=== PATIENT | male | born 1975 | race Caucasian/White ===

== ENCOUNTER 2025-07-04 14:45 | Outpatient (CLI) | payer BC, SELFPAY ==
--- OUTSIDE RECORDS SUMMARY | 2025-05-10 13:30 | XMS_ITS | Encounter Summary ---
[facility] Address [address] [place] [address] Care Team Providers Care Automatic Chief Name Role Phone LeenaYamilka acosta Amy CARD Primary Care Provider [phone]- [phone] Reason for Visit * Reason Comments Inflammation of Left Elbow X2 weeks Encounter Details Date Type Department Care Team (Latest Contact Info) Description 05/10/2025 2:30 PM EDT Office Visit [facility] [address] [facility] [place] [address] Vannesa Goel, PABrando [address] [place] [address] Left lateral epicondylitis (Primary Dx) Social History Tobacco Use Types Packs/Day Years Used Date Smoking Tobacco: Never Smokeless Tobacco: Never Alcohol Use Standard Drinks/Week Comments Yes 0 (1 standard drink = 0.6 oz pur e alcohol) beer on occasion PHQ-2 Answer Date Recorded Retired PHQ-9: Brief Depression Severity Measure Score 0 10/03/2022 PHQ-2 Answer Date Recorded Patient Health Questionnaire-2 Score 0 10/10/2024 Sex and Gender Information Value Date Recorded Sex Assigned at Not on file Legal Sex Male 12:18 PM EDT Gender Identity Not on file Sexual Orientation Not on file Occupation Industry Job Start Date Job End Date Not on file Not on file Not on file Not on file documented as of this encounter Last Filed Vital Signs Vital Sign Reading Time Taken Comments Blood Pressure 128/90 05/10/2025 2:29 PM EDT Pulse 68 05/10/2025 2:29 PM EDT Temperature 36.8 C (98.2 F) 05/10/2025 2:29 PM EDT Respiratory Rate 16 05/10/2025 2:29 PM EDT Oxygen Saturation - - Inhaled Oxygen Concentration - - Weight 108 kg (237 lb) 05/10/2025 2:29 PM EDT Height - - Body Mass Index 32.14 03/15/2025 3:39 PM EDT documented in this encounter Progress Notes * Vannesa Goel PA-C - 05/10/2025 3:10 PM EDTAssociated Problem(s): Left lateral epicondylitis History and physical consistent with left lateral epicondylitis Patient has tried conservative measures at home without relief Steroid injection given in office Advised patient to avoid activity that worsens symptoms Follow up with [facility] if symptoms do not improve * Vannesa Goel PA-C - 05/10/2025 2:30 PM EDT Images from the original note were not included. Office Note Name: Naif Colmenares : 1975 Chief Complaint Inflammation of Left Elbow (X2 weeks ) Subjective History of Present Illness: Naif Colmenares is a 49 y.o. male who presents today with complaints of left elbow pain. Symptoms began approximately 2 weeks go. 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 Is also active in [employer]. Has a history of epicondylitis and feels that is what this is. Most recent episode, patient received a joint injection at [facility] which did provide him relief. Has been doing exercises at home given by PT, tried using a brace, is taking ibuprofen as needed, and applying ice to the affected area. Has not been able to get any relief from symptoms. Cannot tolerate oral steroids. No other complaints or concerns. Past Medical History: Past Medical History: Diagnosis Date ADHD, predominantly inattentive type Decreased libido Elevated blood pressure Exposure to STD Reported 04/14/2011 History of herpes zoster Reported October 2012 History of urinary frequency 3 times during the night (Reported: 04/14/2011) Insomnia Low back pain Pain in joint of right shoulder Sacroiliitis Wart Immunizations: Immunization History Administered Date(s) Administered Flu Vaccine Intradermal Quad 18-64YR 06/08/2018 Hepatitis A 06/08/2018 Influenza Seasonal Injectable 05/13/2019 flucelvax quad pfs =>4 YRS 06/12/2019 Medications: Current Outpatient Medications: amphetamine-dextroamphetamine (Adderall) 20 MG tablet, Take 1 tablet by mouth 2 (Two) Times a Day.,Disp: 60 tablet, Rfl: 0 inFLIXimab (REMICADE) 100 MG injection, Infuse into a venous catheter., Disp: , Rfl: pantoprazole (PROTONIX) 40 MG EC tablet, Take 1 tablet by mouth Every Morning., Disp: , Rfl: zolpidem (AMBIEN) 5 MG tablet, Take 2 tablets by mouth At Night As Needed for Sleep., Disp: 60 tablet, Rfl: 2 No current facility-administered medications for this visit. Objective Vital Signs BP 128/90 Pulse 68 Temp 98.2 ??F (36.8 ??C) Resp 16 Wt 108 kg (237 lb) BMI 32.14 kg/m?? Estimated body mass index is 32.14 kg/m?? as calculated from the following: Height as of 03/15/25: 182.9 cm (72 ). Weight as of this encounter: 108 kg (237 lb). Physical Exam Vitals and nursing note reviewed. Constitutional: Appearance: Normal appearance. HENT: Head: Normocephalic and atraumatic. Cardiovascular: Rate and Rhythm: Normal rate and regular rhythm. Heart sounds: No murmur heard. No friction rub. No gallop. Pulmonary: Effort: Pulmonary effort is normal. Breath sounds: Normal breath sounds. No wheezing, rhonchi or rales. Musculoskeletal: Right elbow: Normal. No tenderness. Left elbow: Tenderness present in lateral epicondyle. Skin: General: Skin is warm and dry. Neurological: General: No focal deficit present. Mental Status: He is alert and oriented to person, place, and time. Psychiatric: Mood and Affect: Mood normal. Behavior: Behavior normal. Assessment and Plan Diagnoses and all orders for this visit: 1. Left lateral epicondylitis (Primary) Assessment & Plan: History and physical consistent with left lateral epicondylitis Patient has tried conservative measures at home without relief Steroid injection given in office Advised patient to avoid activity that worsens symptoms Follow up with [facility] if symptoms do not improve Orders: - triamcinolone acetonide (KENALOG-40) injection 40 mg Follow Up No follow-ups on file. ISABEL Chawla [place] [facility] [address] [place] [address] documented in this encounter Plan of Treatment Upcoming Encounters Date Type Department Care Team (Late st Contact Info) Description 09/15/2025 4:30 PM EST Office Visit [facility] [address] [place] [address] Yamilka Stern DO [address] [place] [place] [address] documented as of this encounter Visit Diagnoses Diagnosis Left lateral epicondylitis- Primary documented in this encounter Administered Medications Inactive Administered Medications - up to 3 most recent administrations Medication Order MAR Action Action Date Dose Rate Site triamcinolone acetonide (KENALOG-40) injection 40 mg 40 mg, Intramuscular, Once, On Thu05/10/25 at 1447, For 1 doseIndications:Left lateral epicondylitis Given 05/10/2025 2:48 PM EDT 40 mg Left Ventrogluteal documented in this encounter Care Teams Automatic Chief Relationship Specialty Start Date End Date Yamilka Stern DO [address] [place] [address] PCP - General Family Medicine 01/10/19 documented as of this encounter
--- OUTSIDE RECORDS SUMMARY | 2025-06-29 12:30 | XMS_ITS | Encounter Summary ---
[facility] Address [address] [place] [address] Care Team Providers Care Interpreter Translator Name Role Phone Yamilka Stern DO Primary Care Provider [phone]- [phone] Reason for Visit * Reason Comments Anxiety increasing Encounter Details Date Type Department Care Team (Late st Contact Info) Description 06/29/2025 12:30 PM EST Office Visit [facility] [address] [facility] [place] [address] Yamilka Stern DO [address] [facility] [place] [address] Anxiety (Primary Dx); Stress; Other insomnia; Right elbow pain; Trapezius muscle spasm Social History Tobacco Use Types Packs/Day Years [...] Sign Reading Time Taken Comments Blood Pressure 116/82 06/29/2025 12:17 PM EST Pulse 97 06/29/2025 12:17 PM EST Temperature 36.3 C (97.3 F) 06/29/2025 12:17 PM EST Respiratory Rate 16 06/29/2025 12:17 PM EST Oxygen Saturation 95% 06/29/2025 12:17 PM EST Inhaled Oxygen Concentration - - Weight 107 kg (236 lb 3.2 oz) 06/29/2025 12:17 P M EST Height 182.9 cm (6') 06/29/2025 12:17 PM EST Body Mass Index 32.03 06/29/2025 12:17 PM EST documented in this encounter Patient Instructions * Attachments The following attachments cannot be sent through Care Everywhere. * Generalized Anxiety Disorder Adult ([place]) documented in this encounter Progress Notes * Yamilka Stern DO - 06/29/2025 12:30 PM EST Images from the original note were not included. Chief Complaint Anxiety (increasing) Subjective Naif Baker Dedra presents to [facility] History of Present Illness The patient presents for evaluation of right elbow pain and anxiety. He reports experiencing right elbow pain for approximately one week, which he attributes to either an incorrect sleeping position or a muscle strain. The pain is described as a burning sensation accompanied by stiffness and radiates down the arm. He suspects a possible pinched nerve in his shoulder. He has a history of ulnar nerve surgery and a bicep tear, and he believes the current pain may be a re-aggravation of these previous injuries. He has found some relief with Flexeril, taking two doses, and using a massage gun. Hot showers also seem to alleviate the pain. He is unable to take ibuprofen due to adverse reactions related to UC. He has previously taken prednisone and Medrol Dosepak without complication. He is currently undergoing a job transition, which has been a source of significant stress and anxiety over the past two months. He reports feelings of irritability and difficulty controlling stress.He also experiences episodes of shortness of breath associated with increased anxiety and has abstained from alcohol consumption. He has previously taken buspirone, but discontinued it due to side effects. He has not tried hydroxyzine before. He has been using Ambien for slee,p but finds it less effective than the extended-release version he used to take. Alcohol: He has abstained from alcohol consumption. Sleep: He has been using Ambien for sleep, but finds it less effective than the extended-release version he used to take. The following portions of the patient's history were reviewed and updated as appropriate: allergies, current medications, past family history, past medical history, past social history, past surgicalhistory, and problem list. Objective Physical Exam Vitals and nursing note reviewed. Cardiovascular: Rate and Rhythm: Normal rate and regular rhythm. Heart sounds: Normal heart sounds. Pulmonary: Effort: Pulmonary effort is normal. Breath sounds: Normal breath sounds. Musculoskeletal: Right elbow: Normal range of motion. Tenderness present in medial epicondyle. Arms: Comments: Increased muscle tension right trapezius Neurological: Mental Status: He is alert. Psychiatric: Mood and Affect: Mood normal. Physical Exam Result Review : Results Assessment and Plan Diagnoses and all orders for this visit: 1. Anxiety (Primary) - hydrOXYzine (ATARAX) 25 MG tablet; Take 1 tablet by mouth 3 (Three) Times a Day As Needed for Anxiety. Dispense: 30 tablet; Refill: 2 2. Stress 3. Other insomnia - zolpidem CR (Ambien CR) 12.5 MG CR tablet; Take 1 tablet by mouth At Night As Needed for Sleep. Dispense: 30 tablet; Refill: 5 4. Right elbow pain - methylPREDNISolone (MEDROL) 4 MG dose pack; Take as directed on package instructions. Dispense: 21 tablet; Refill: 0 - cyclobenzaprine (FLEXERIL) 10 MG tablet; Take 1 tablet by mouth 3 (Three) Times a Day As Needed for Muscle Spasms. Dispense: 30 tablet; Refill: 1 5. Trapezius muscle spasm - methylPREDNISolone (MEDROL) 4 MG dose pack; Take as directed on package instructions. Dispense: 21 tablet; Refill: 0 - cyclobenzaprine (FLEXERIL) 10 MG tablet; Take 1 tablet by mouth 3 (Three) Times a Day As Needed for Muscle Spasms. Dispense: 30 tablet; Refill: 1 Assessment & Plan 1. Right elbow pain: - The patient reports burning, stiffness, and pain radiating down the arm, which improves with movement and heat but worsens upon waking. - A prescription for Medrol Dosepak will be provided to manage the inflammation. - A prescription for Flexeril (cyclobenzaprine) will be provided for muscle relaxation. The patientis advised to apply cold compresses to the affected area and to rest the elbow as much as possible. -If this persist, consider cervical spine evaluation versus right shoulder evaluation. 2. Anxiety: - The anxiety appears to be situational, likely triggered by recent job-related stressors. - The patient reports irritability, difficulty controlling emotions, and episodes of feeling on edge and unable to breathe. - A prescription for hydroxyzine will be provided, to be taken as needed. If drowsiness occurs, thedose can be halved. If the medication does not alleviate the anxiety, the dosage can be increased. - A prescription for Ambien CR will be provided to aid with sleep, changing from immediate release Ambien. FRANCIA query complete. Treatment plan to include limited course of prescribed controlled substance. Risks including addiction, benefits, and alternatives presented to patient. Follow Up Return if symptoms worsen or fail to improve. Patient or patient medical customer service representative verbalized consent for the use of Ambient Listening during the visit with Yamilka Stern DO for chart documentation. 06/29/2025 13:06 EST Patient was given instructions and counseling regarding his condition or for health maintenance advice. Please see specific information pulled into the AVS if appropriate. documented in this encounter Plan of Treatment Upcoming Encounters Date Type Department Care Team (Late st Contact Info) Description 09/15/2025 4:30 PM EST Office Visit [facility] [address] [place] [id number] Yamilka Stern DO [address] [place] [address] documented as of this encounter Visit Diagnoses Diagnosis Anxiety- Primary Anxiety state, unspecified Stress Other psychological or physical stress, not elsewhere classified Other insomnia Right elbow pain Pain in joint, upper arm Trapezius muscle spasm documented in this encounter Care Teams Interpreter Translator Relationship Specialty Start Date End Date Yamilka Stern DO [address] [place] [address] PCP - General Family Medicine 01/10/19 documented as of this encounter
--- OUTSIDE RECORDS SUMMARY | 2025-07-04 14:47 | XMS_ITS | Encounter Summary ---
[facility] [address] [place] [address] Care Team Providers Care Early Childhood Assistant Name Role Phone Yamilka Stern DO Primary Care Provider +1- [phone] Reason for Visit * Reason Onset Date Comments Med Refill 06/16/2025 Encounter Details Date Type Department Care Team (Late st Contact Info) Description 06/16/2025 Refill [facility] [address] [place] [address] Yamilka Stern DO [address] [place] [address] Other insomnia Social History Tobacco Use Types Packs/Day Years [...] on file documented as of this encounter Miscellaneous Notes * Telephone Encounter - Holly Figueredo RegSched Rep - 06/16/2025 8:06 AM EST Caller: Naif Colmenares Relationship: Self Best call back number: [phone] Requested Prescriptions: Requested Prescriptions Pending Prescriptions Disp Refills zolpidem (AMBIEN) 5 MG tablet 60 tablet 2 Sig: Take 2 tablets by mouth At Night As Needed for Sleep. Pharmacy where request should be sent: [id number] - [place], [place] - [address] [facility] AT [address] [phone] [facility] [phone] FX Last office visit with prescribing clinician: 03/15/2025 Last telemedicine visit with prescribing clinician: Visit date not found Next office visit with prescribing clinician: 09/15/2025 Additional details provided by patient: Does the patient have less than a 3 day supply: [x] Yes [] No Would you like a call back once the refill request has been completed: [] Yes [] No If the office needs to give you a call back, can they leave a voicemail: [] Yes [] No Mary Murphy Rep 06/16/25 08:07 EST documented in this encounter Plan of Treatment Upcoming Encounters Date Type Department Care Team (Late st Contact Info) Description 09/15/2025 4:30 PM EST Office Visit [facility] [address] [place] [phone] Yamilka Stern DO [address] [place] [address] documented as of this encounter Visit Diagnoses Diagnosis Other insomnia documented in this encounter Care Teams Early Childhood Assistant Relationship Specialty Start Date End Date Yamilka Stern DO [address] [place] [address] PCP - General Family Medicine 01/10/19 documented as of this encounter
--- OUTSIDE RECORDS SUMMARY | 2025-07-04 14:47 | XMS_ITS | Encounter Summary ---
[facility] [address] [place] [address] Care Team Providers Care Medical Biller/Coder Name Role Phone Yamilka Stern DO Primary Care Provider +1- [phone] Encounter Details Date Type Department Care Team (Latest Contact Info) Description 05/10/2025 Travel Social History Tobacco Use Types Packs/Day Years [...] on file documented as of this encounter Plan of Treatment Upcoming Encounters Date Type Department Care Team (Late st Contact Info) Description 09/15/2025 4:30 PM EST Office Visit [facility] [address] [place] [address] Yamilka Stern DO [address] [place] [address] documented as of this encounter Visit Diagnoses Not on filedocumented in this encounter Care Teams Medical Biller/Coder Relationship Specialty Start Date End Date Yamilka Stern DO [address] [place] [address] PCP - General Family Medicine 01/10/19 documented as of this encounter
--- OUTSIDE RECORDS SUMMARY | 2025-07-04 14:47 | XMS_ITS | Encounter Summary ---
[facility] [address] [place] [address] Care Team Providers Care Sole Trimmer Name Role Phone Yamilka Stern DO Primary Care Provider +1- [phone] Encounter Details Date Type Department Care Team (Latest Contact Info) Description 06/29/2025 Travel Social History Tobacco Use Types Packs/Day [...] Description 09/15/2025 4:30 PM EST Office Visit [facility] [address] [place] [address] Yamilka Stern DO [address] [place] [address] documented as of this encounter Visit Diagnoses Not on filedocumented in this encounter Care Teams Sole Trimmer Relationship Specialty Start Date End Date Yamilka Stern DO [address] [place] [address] PCP - General Family Medicine 01/10/19 documented as of this encounter
--- OUTSIDE RECORDS SUMMARY | 2025-07-04 14:47 | XMS_ITS | Clinical Summary ---
Author Organization [facility] Address [address] [id number] Care Team Providers Care Paratransit Operator Name Role Phone Unavailable Primary Care Provider Unavailabl e Social History Tobacco Use Types Packs/Day Years Used Date Smoking Tobacco: Never Assessed Sex and Gender Information Value Date Recorded Sex Assigned at Not on file Legal Sex Male 7:51 PM EDT Gender Identity Not on file Sexual Orientation Not on file Plan of Treatment Health Maintenance Due Date Last Done Comments [facility]-Depression Screening 1975 [facility]-Infant/Child/Adol SDOH Screenings 1975 [facility]- SDOH Screenings 1994 [facility]-Adult SDOH Screenings 1994 [facility]-DTaP,Tdap,and Td Vaccine s (1 - Tdap) 12/09/1995 [facility]-Hepatitis B Vaccines (1 of 3 - 19+ 3-dose series) 12/09/1995 CT Colonography 2021 Colonoscopy 2021 FIT-DNA 2021 FIT 2021 FOBT 2021 Sigmoidoscopy 2021 [facility]-Colorectal Cancer Screening 2021 [id number] Vaccine (1 - 20 25-26 season) 2025 [facility]-Influenza Vaccine (#1) 2025 [facility]-Zoster Vaccines (1 of 2) 2026 HPV Vaccines (No Doses Required) Completed [facility]-HIB Vaccines Aged Out No longer e ligible based on patient's age to complete this topic [facility]-Hepatitis A Vaccines Aged Out No longer eligible based on patient's age to complete this topic [facility]-IPV Vaccines Aged Out No longer e ligible based on patient's age to complete this topic [facility]-Pneumococcal Vaccine: Pediatrics (0 to 5 Years) and At-Risk Patients (6 to 49 Years) Aged Out No long er eligible based on patient's age to complete this topic [facility]-Rotavirus Vaccines Aged Out No lo nger eligible based on patient's age to complete this topic
--- OUTSIDE RECORDS SUMMARY | 2025-07-04 14:47 | XMS_ITS | Encounter Summary ---
[facility] Address [address] [place] [address] Care Team Providers Care Post Acute Care Nurse Practitioner Name Role Phone Yamilka Stern DO Primary Care Provider +1- [phone] Reason for Visit * Reason Onset Date Comments Med Refill 05/16/2025 Encounter Details Date Type Department Care Team (Late st Contact Info) Description 05/16/2025 Refill [facility] [address] [place] [address] Yamilka Stern DO [address] [place] [address] ADHD, predominantly inattentive type Social History Tobacco Use Types Packs/Day Years [...] encounter Miscellaneous Notes * Telephone Encounter - Lety Thibodeaux RegSched Rep - 05/16/2025 3:11 PM EST Caller: Naif Colmenares Relationship: Self Best call back number: [phone] Requested Prescriptions: Requested Prescriptions Pending Prescriptions Disp Refills amphetamine-dextroamphetamine (Adderall) 20 MG tablet 60 tablet 0 Sig: Take 1 tablet by mouth 2 (Two) Times a Day. Pharmacy where request should be sent: [id number] - [place], [place] - [address] [facility] AT [address] [phone] [facility] [phone] Last office visit with prescribing clinician: 03/15/2025 Last telemedicine visit with prescribing clinician: Visit date not found Next office visit with prescribing clinician: 09/15/2025 Does the patient have less than a 3 day supply: [x] Yes [] No Would you like a call back once the refill request has been completed: [] Yes [] No If the office needs to give you a call back, can they leave a voicemail: [] Yes [] No Mary Srinivasan Rep 05/16/25 15:11 EST documented in this encounter Plan of Treatment Upcoming Encounters Date Type Department Care Team (Late st Contact Info) Description 09/15/2025 4:30 PM EST Office Visit [facility] [address] [place] [phone] Yamilka Stern DO [address] [place] [address] documented as of this encounter Visit Diagnoses Diagnosis ADHD, predominantly inattentive type Attention deficit disorder without mention of hyperactivity documented in this encounter Care Teams Post Acute Care Nurse Practitioner Relationship Specialty Start Date End Date Yamilka Stern DO [address] [place] [address] PCP - General Family Medicine 01/10/19 documented as of this encounter
--- OUTSIDE RECORDS SUMMARY | 2025-07-04 14:48 | XMS_ITS | Clinical Summary ---
Author Organization [facility] , [facility] Address [address] [place] [address] Phone Care Team Providers Care House Servant Name Role Phone Carlo CLAROS, Terence Frederick Unavailable [phone] Yamilka Stern DO Primary Care Provider [phone] Reason for Referral 12/27/2020 Encounter for WC FOLLOW UP/EST Date Recorded Target Due Date Referral Type Referring Prov ider Reason For Referral 12/27/2020 Terence Matos MD see pcp for bp Last Documented On 1 9:03AM ; [facility] Reason for Visit and Chief Complaint The Chief Complaint is: right biceps tendon repair 03/21/20 Problems Includes: Problems addressed during this encounter and other active Problems All Visits Onset Date Date of Diagnosis Resolved Date Provider Condition Status Bone Pain in Right Upper Arm 03/06/2020 03/06/2020 Terence Matos MD Active Last Documented On 5 1:40AM ; [facility] Right Elbow Bone Pain 02/08/2020 02/08/2020 Jewell Handley MD Active Last Documented On 5 1:40AM ; [facility] Plan of Treatment Patient was seen by myself Akshat Broderick PA-C. Patient will follow up as needed for now will return to work on Thursday with no restrictions and see how this goes with him. In the future if his cubital tunnel is still symptomatic he may need to have further surgery. First bicep tendon repair is at I at this point in time - Last Documented On 02/07/2021 4:10PM ; [facility], [facility] Assessments Includes: Assessments from this encounter Findings Right elbow bicep tendon repair 03/21/20 and cubital tunnel syndrome - Last Documented On 02/07/2021 4:10PM ; [facility], [facility] Medical Equipment - Implanted Devices Includes: Current Devices No Medical Equipment Recorded Medications Includes: Medications discussed during this encounter and other current Medications Current Medications (continue as prescribed) Amphet-Dextroamphet 3-Bead E R 25 MG Oral Capsule Extended Release 24 Hour 01/12/2020 Provider: Yamilka Stern DO Diagnosis: Last Documented On 0 11:09AM By Jenelle Mcmillan ; [facility], [facility] Zolpidem Tartrate ER 12.5 MG Oral Tablet Extended Release 11/17/2019 Provider: Yamilka Stern DO Diagnosis: Last Documented On 0 11:09AM By Jenelle Mcmillan ; [facility], [facility] Past Medications on file Medrol 4 MG Oral Tablet Ther apy Pack 06/28/2020 - 07/28/2020 Provider: Terence Matos MD Diagnosis: take as directed Last Documented On 0 10:36AM By Devi Estrada ; [facility], [facility] Percocet 5-325 MG OR TABS 03/18/2020 - 04/02/2020 Prov ider: Terence Matos MD Diagnosis: prn pain Last Documented On 0 4:29PM By Sissy Lynch ; [facility], [facility] Medications Administered Includes: Administered Medications from this encounter No Administered Medications Recorded Vital Signs Includes: Vital Signs from this encounter Vital Name 12/27/2020 09:03A Blood Pressure Sitting (mmHg) 130/93 Pulse Rate-Sitting (bpm) 86 Height (in) 72 Weight (lb) 215 Body Mass Index (kg/m2) 29.2 Body Surface Area (m2) 2.2 Note: efrain Last Documented: On 12/27/2020 9:06AM ; [facility], [facility] Results Includes: Results discussed during this encounter No Results Recorded For Specified Dates History of Present Illness Includes: History of Present Illness from this encounter OBEY Colmenares (Wes) is a 45 year old male. - Allergy list reviewed - Problem list reviewed - Medication reconciliation performed - Medication list reviewed Patient is here today for follow-up of his right biceps tendon repair and cubital tunnel syndrome his biceps tendon repair was 03/21/2020 typically had developed postoperatively some cubital tunnel. He says he still has numbness and tingling in the last 2 fingers he feels his bicep is doing well he would like to try to get back to work at this point in time Social History Description Last Updated Non-smoker 12/27/2020 Last Documented On 1 4:10PM ; [facility] No recent change in diet 02/08/2020 Last Documented On 1 9:03AM ; [facility] Not a current smoker 02/08/2020 Last Documented On 1 9:03AM ; [facility] Not using alcohol 02/08/2020 Last Documented On 1 9:03AM ; [facility] Not using drugs 02/08/2020 Last Documented On 1 9:03AM ; [facility] Sex - Male 09/01/2022 Last Documented On 3 3:45PM ; [facility] Smoking Status Unknown Procedures and Surgical History Includes: Procedures from this encounter Procedures Code Diagnosis Performing Provider Service L ocation Service Date use of tobacco assessment performed 1000F Last Documented On 1 9:03AM ; [facility] referral to physician see pcp for bp Last Documented On 1 9:03AM ; [facility] Medical History Includes: Medical History addressed during this encounter Description Last Updated Past medical and surgical history non-co ntributory 02/08/2020 Last Documented On 1 9:03AM ; [facility] Family History Includes: Family History addressed during this encounter Description Last Updated No significant family history 02/08/2020 Last Documented On 1 9:03AM ; [facility] Review of Systems Includes: Review of Systems from this encounter Systemic: Not feeling tired, no recent weight loss, and no recent weight gain. No edema. Head: No headache and no sinus pain. Eyes: No vision problems and no glaucomatous visual field defect. Otolaryngeal: No hearing loss and no tinnitus. No nasal symptoms. Cardiovascular: No chest pain or discomfort and no palpitations. Pulmonary: No daytime asthma symptoms, no cough, and no chronic cough. No wheezing. Gastrointestinal: Heartburn. No heartburn and no abdominal pain. Endocrine: No hot flashes and no muscle weakness. Hematologic: No easy bleeding and no tendency for easy bruising. Musculoskeletal: No lower back pain. No soft tissue swelling and no localized joint pain. Neurological: No dizziness, no convulsions, and no numbness. Psychological: No anxiety, no emotional lability, no depression, and no insomnia. Not crying for no reason. Skin: No dry skin, no rash, and no ulcers. Allergic and Immunologic: No complaint of seasonal allergic reaction. Reviewed 12/27/2020 Mental Status Includes: Mental Status from this encounter Description No anxiety Last Documented On 9:03AM ; [facility] Physical Exam Includes: Physical Exam from this encounter Allergies Includes: Active Allergies No Known Allergies Care House Servant Name (Identifier) Role/Relation Location/Telecom Last Documented By Terence Matos MD ([id number]) Assigned practitioner (occupation) [address] [place], [place], [place], [address] tel:[phone] Last Documented On 09/01/2022 3:45PM ; [facility] Yamilka Stern DO ([id number]) Primary care physician (occupation) [address] [place], [place], , [address] tel:[phone] Last Documented On 09/01/2022 3:45PM ; [facility] Encounters Encounter Provider Location (Healthcare Service Location) Date Check-In Time Check-Out Time Diagnosis Encounter Disposition WC FOLLOW UP/EST Terence Matos MD [facility] 2020 8:45AM 9:28AM Payer Includes: Active Insurance Policies Plan Name (Payer ID) Coverage Type Member ID Group # Subscriber (ID) Relationship Effective Dates 1 - KELLY [id number] Naif 'We s' Lingerfelt Self 03/05/2020 - Unknown Last Documented On 0 2:37PM ; [facility] 2 - MedRisk [id number] Naif Duval' Lingerfelt Self 03/05/2020 - Unknown Last Documented On 0 2:11PM ; [facility] 3 - [facility] ([id number]) [id number] Naif Duval' Lingerfelt Self 07/13/2019 - Unknown Last Documented On 0 9:18AM ; [facility], [facility]
--- OUTSIDE RECORDS SUMMARY | 2025-07-04 14:48 | XMS_ITS | Clinical Summary ---
Author Organization [email or web address] ([place], [place], [place], [place], [place]) Address [address] [place] [address] Care Team Providers Care Risk Prevention Engineer Name Role Phone Odette HERCULES Md, Mark CLAROS Unavailable [phone] Yamilka Stern DO Primary Care Provider [phone] Allergies No known active allergies Medications dextroamphetamine-a mphetamine (ADDERALL) 20 mg Tab tablet Take 1 tablet (20 mg total) by mouth 2 (two) times daily. 2 Active metFORMIN (GLUCOPHAGE) 500 MG tablet Take 1 tablet (500 mg total) by mouth 2 (two) times daily. 2 Active methylPREDNISolone (MEDROL DOSEPACK) 4 mg tablet TAKE 6 TABLETS ON DAY 1 DIRECTED ON PACKAGE AND DECREASE BY 1 TAB EACH DAY FOR A TOTAL OF 6 DAYS 2 Active omeprazole (PriLOSEC) 20 MG capsule Take 1 capsule (20 mg total) by mouth every morning. 2 Active ondansetron (ZOFRAN-ODT) [address] 1 tablet (4 mg total) under the tongue. 2 Active phentermine (ADIPEX-P) 37.5 mg tablet Take by mouth. 2 Active testosterone cypionate (DEPOTESTOTERONE CYPIONATE) 200 mg/mL injection SMARTSI.5 Milliliter(s ) IM Twice a Week 2 Active zolpidem (AMBIEN CR) 12.5 MG CR tablet Take 1 tablet (12.5 mg total) by mouth every night as needed. Active Active Problems Problem Noted Date Diagnosed Date Nonspecific ulcerative colitis 05/30/2022 Social History Tobacco Use Types Packs/Day Years Used Date Smoking Tobacco: Never Smokeless Tobacco: Never Tobacco Cessation:Counseling Given: Not Answered Alcohol Use Standard Drinks/Week Comments Yes 0 (1 standard drink = 0.6 oz pur e alcohol) socially Family and Community Support Answer Robert e Recorded Help with Day to Day Activities Not on file 07/21/2023 Feeling Lonely or Isolated Not on file 07/21 Educational Attainment Answer Date Kel rded Speak language other than Emirati at home Not on file 07/21/2023 Want help with school or training Not on file 07/21/2023 Substance Use Answer Date Recorded Used prescription meds for non-medical reasons N ot on file 07/21/2023 Used illegal drugs past 12 months Not on file 07/21/2023 Sex and Gender Information Value Date Recorded Sex Assigned at Male 11/14/2022 3:41 PM CDT Legal Sex Male 2:17 PM CDT Gender Identity Male 11/14/2022 3:41 PM CDT Sexual Orientation Not on file Last Filed Vital Signs Vital Sign Reading Time Taken Comments Blood Pressure 135/97 11/25/2023 11:01 AM EDT Pulse 76 11/25/2023 11:01 AM EDT Temperature 36.8 C (98.2 F) 01/09/2023 8:12 AM EDT Respiratory Rate 18 11/25/2023 11:01 AM EDT Oxygen Saturation 99% 11/25/2023 11:01 AM EDT Inhaled Oxygen Concentration - - Weight 106.6 kg (235 lb) 11/25/2023 7:53 AM EDT Height 182.9 cm (6') 11/25/2023 7:53 AM EDT Body Mass Index 31.87 11/25/2023 7:53 AM EDT Plan of Treatment Health Maintenance Due Date Last Done Comments CT Colonography 1976 Colonoscopy 1976 Colorectal Cancer Screening 1976 FOBT/FIT 1976 Fit-DNA (Cologuard) 1976 Sigmoidoscopy 1976 Depression Screening (12+) 1988 HIV Screening 12/09/1991 Hepatitis C Screening 1994 DTAP/TDAP/TD VACCINES (1 - Tdap) 12/09/1995 Lipid Panel 12/09/2011 Tobacco Cessation Counseling and Screening (12+) 11/24/2024 11/25/2023 COVID-19 VACCINE (1 - 2023-2 5 season) 2025 Influenza Vaccine (#1) 2025 9, 06/08/2018 Pneumococcal Vaccine: 0-49 Years Aged Out No longer eligible b ased on patient's age to complete this topic Insurance [facility]/[employer] SHIELD Care Teams Risk Prevention Engineer Relationship Specialty Start Date End Date Yamilka Stern, [address] [place] [address] PCP - General Family Medicine 09/23/23 Odette HERCULES Md, MD Mark [address] [address] Gastroenterology 11/14/22
--- OUTSIDE RECORDS SUMMARY | 2025-07-04 14:48 | XMS_ITS | Referral Summary ---
Author Organization [employer] ([place], [place], [place], [place], [place]) Address [address] [place] [address] Care Team Providers Care Shuttle Spotter Name Role Phone Odette HERCULES Md, Mark CLAROS Unavailable [phone] Yamilka Stern DO Primary Care Provider [phone] Allergies No known active allergies Medications dextroamphetamine-a [...] Date Kel rded Speak language other than [place] Korean at home Not on file 07/21/2023 Want [...] 11/25/2023 7:53 AM EDT Plan of Treatment Not on file Insurance BLUE CROSS/BLUE SHIELD Member Subscriber Plan / Payer (Ef fective 2019-Present) Name:Naif Colmenares Relation to Subscriber:Self Name:Naif Colmenares Payer ID:Not on file Type:Not on file Address: [address] [employer] CROSS/BLUE SHIELD Care Teams Shuttle Spotter Relationship Specialty Start Date End Date Yamilka Stern, DO [address] [place] [address] PCP - General Family Medicine 09/23/23 Odette HERCULES Md, MD Mark [address] [address] Gastroenterology 11/14/22
--- OUTSIDE RECORDS SUMMARY | 2025-07-04 14:48 | XMS_ITS | Clinical Summary ---
Author Organization [facility] , [facility] Address [address] [place] [address] Phone Care Team Providers Care Evp Marketing Name Role Phone Carlo CLAROS, Terence Frederick Unavailable [phone] Yamilka Stern DO Primary Care Provider [phone] Reason for Visit and Chief Complaint WC EMG/NCS Problems Includes: Problems addressed during this encounter and other active Problems All Visits Onset Date Date of Diagnosis Resolved Date Provider Condition Status Bone Pain in Right Upper Arm 03/06/2020 03/06/2020 Terence Matos MD Active Last Documented On 5 1:40AM ; [facility] Right Elbow Bone Pain 02/08/2020 02/08/2020 Jewell Handley MD Active Last Documented On 5 1:40AM ; [facility] Plan of Treatment No Plan of Treatment Recorded Assessments Includes: Assessments from this encounter No Assessments Recorded Medical Equipment - Implanted Devices Includes: Current Devices No Medical Equipment Recorded Medications Includes: Medications discussed during this encounter and other current Medications Current Medications (continue as prescribed) Amphet-Dextroamphet 3-Bead E R 25 MG Oral Capsule Extended Release 24 Hour 01/12/2020 Provider: Yamilka Stern DO Diagnosis: Last Documented On 0 11:09AM By Jenelle Mcmillan ; [facility] Zolpidem Tartrate ER 12.5 MG Oral Tablet Extended Release 11/17/2019 Provider: Yamilka Stern DO Diagnosis: Last Documented On 0 11:09AM By Jenelle Mcmillan ; [facility], [facility] Medications Administered Includes: Administered Medications from this encounter No Administered Medications Recorded Results Includes: Results discussed during this encounter No Results Recorded For Specified Dates History of Present Illness Includes: History of Present Illness from this encounter No History of Present Illness Recorded Social History Description Last Updated Sex - Male 09/01/2022 Last Documented On 3 3:45PM ; [facility], [facility] Smoking Status Unknown Medical History Includes: Medical History addressed during this encounter No Medical History Recorded Family History Includes: Family History addressed during this encounter No Family History Recorded Review of Systems Includes: Review of Systems from this encounter No Review of Systems Recorded Physical Exam Includes: Physical Exam from this encounter No Physical Exam Recorded Allergies Includes: Active Allergies No Known Allergies Care Evp Marketing Name (Identifier) Role/Relation Location/Telecom Last Documented By Terence Matos MD ([id number]) Assigned practitioner (occupation) [address] [place], [place], , [address] tel:[phone] Last Documented On 09/01/2022 3:45PM ; [facility], [facility] Yamilka Stern DO ([id number]) Primary care physician (occupation) [address] [place] [place], [place], , [address] tel:[phone] Last Documented On 09/01/2022 3:45PM ; [facility], [facility] Encounters Encounter Provider Location (Healthcare Service Location) Date Check-In Time Check-Out Time Diagnosis Encounter Disposition WC EMG/NCS [facility] 2022 8:48AM 11:59PM Payer Includes: Active Insurance Policies Plan Name (Payer ID) Coverage Type Member ID Group # Subscriber (ID) Relationship Effective Dates 1 - [employer] [id number] Naif SnellWe s' Lingerfelt Self 03/05/2020 - Unknown Last Documented On 0 2:37PM ; [facility], [facility] 2 - [employer] [id number] Naif Duval' Lingerfelt Self 03/05/2020 - Unknown Last Documented On 0 2:11PM ; [facility], [facility] 3 - [facility] ([id number]) [id number] Naif 'Humberto' Lingerfelt Self 07/13/2019 - Unknown Last Documented On 0 9:18AM ; [facility], [facility]
--- OUTSIDE RECORDS SUMMARY | 2025-07-04 14:48 | XMS_ITS | Encounter Summary ---
[facility] Organization [facility] Address [address] [id number] Care Team Providers Care Tester Rocket Engine Name Role Phone Yamilka Stern DO Primary Care Provider [phone] Encounter Details Date Type Department Care Team (Late Contact Info) Description 10/17/2024 Results Follow-Up [facility] [address] [place] [address] Yamilka Stern DO [address] [place] [address] Social History Tobacco Use Types Packs/Day Years [...] Encounters Date Type Department Care Team (Late Contact Info) Description 09/15/2025 4:30 PM EST Office Visit [facility] [address] [place] [address] Yamilka Stern DO [address] [place] [address] documented as of this encounter Visit Diagnoses Not on filedocumented in this encounter Care Teams Tester Rocket Engine Relationship Specialty Start Date End Date Yamilka Stern DO [address] [place] [address] PCP - General Family Medicine 01/10/19 documented as of this encounter
--- OUTSIDE RECORDS SUMMARY | 2025-07-04 14:48 | XMS_ITS ---
Author Organization [facility] Address [address] [place] [address] Phone Care Team Providers Care Needle Board Repairer Name Role Phone Carlo CLAROS, Terence Frederick Unavailable [phone] Yamilka Stern DO Primary Care Provider [phone] Reason for Referral 12/27/2020 Encounter for WC FOLLOW UP/EST Date Recorded Target Due Date Referral Type Referring Prov ider Reason For Referral 12/27/2020 Terence Matos MD see pcp for bp Last Documented On 1 9:03AM ; [facility] 12/13/2020 Encounter for WC FOLLOW UP/EST Date Recorded Target Due Date Referral Type Referring Prov ider Reason For Referral 12/13/2020 Terence Matos MD see pcp for bp Last Documented On 1 2:05PM ; [facility]2020 Encounter for WC FOLLOW UP/EST Date Recorded Target Due Date Referral Type Referring Prov ider Reason For Referral 11/15/2020 Terence Matos MD see pcp for bp Last Documented On 1 2:53PM ; [facility] 10/04/2020 Encounter for WC FOLLOW UP/EST Date Recorded Target Due Date Referral Type Referring Prov ider Reason For Referral 10/04/2020 Terence Matos MD see pcp for bp Last Documented On 1 1:49PM ; [facility] 08/30/2020 Encounter for WC FOLLOW UP/EST Date Recorded Target Due Date Referral Type Referring Prov ider Reason For Referral 08/30/2020 Terence Matos MD see pcp for bp Last Documented On 1 1:51PM ; [facility], [facility] 07/26/2020 Encounter for WC FOLLOW UP/EST Date Recorded Target Due Date Referral Type Referring Prov ider Reason For Referral 02/07/2021 Terence Matos MD see pcp for bp Last Documented On 1 4:14PM ; [facility] 06/28/2020 Encounter for Follow Up Date Recorded Target Due Date Referral Type Referring Prov ider Reason For Referral 06/28/2020 Terence Matos MD see pcp for bp Last Documented On 0 9:57AM ; [facility] 05/24/2020 Encounter for Post Op Date Recorded Target Due Date Referral Type Referring Prov ider Reason For Referral 05/24/2020 Terence Matos MD see pcp for bp Last Documented On 0 3:07PM ; [facility] 04/19/2020 Encounter for Post Op Date Recorded Target Due Date Referral Type Referring Prov ider Reason For Referral 04/19/2020 Terence Matos MD see pcp for bp Last Documented On 0 1:36PM ; [facility] 04/04/2020 Encounter for Post Op Date Recorded Target Due Date Referral Type Referring Prov ider Reason For Referral 04/04/2020 Terence Matos MD see pcp for bp Last Documented On 0 10:16AM ; [facility] Problems Includes: Active, inactive, and resolved Problems All Visits Onset Date Date of Diagnosis Resolved Date Provider Condition Status Bone Pain in Right Upper Arm 03/06/2020 03/06/2020 Terence Matos MD Active Last Documented On 5 1:40AM ; [facility] Right Elbow Bone Pain 02/08/2020 02/08/2020 Jewell Handley MD Active Last Documented On 5 1:40AM ; [facility] Plan of Treatment Instructions to patient Instructions for patient to see pcp for bp Last Documented On 0 10:12AM ; [facility] Instructions for patient to see pcp for bp Last Documented On 0 3:22PM ; [facility], [facility] Instructions for patient to see pcp for bp Last Documented On 0 11:23AM ; [facility] Assessments Includes: Assessments for all patient encounters No Assessments Recorded Instructions Includes: Instructions for all patient encounters Instructions to patient Instructions for patient to see pcp for bp Last Documented On 0 10:12AM ; [facility] Instructions for patient to see pcp for bp Last Documented On 0 3:22PM ; [facility] Instructions for patient to see pcp for bp Last Documented On 0 11:23AM ; [facility] Medical Equipment - Implanted Devices Includes: Current and historical Devices No Medical Equipment Recorded Medications Includes: Current and historical Medications Current Medications (continue as prescribed) Amphet-Dextroamphet 3-Bead E R 25 MG Oral Capsule Extended Release 24 Hour 01/12/2020 Provider: Yamilka Stern DO Diagnosis: Last Documented On 0 11:09AM By Jenelle [facility] Zolpidem Tartrate ER 12.5 MG Oral Tablet Extended Release 11/17/2019 Provider: Yamilka Stern DO Diagnosis: Last Documented On 0 11:09AM By Jenelle [facility] Past Medications on file Medrol 4 MG Oral Tablet Ther apy Pack 06/28/2020 - 07/28/2020 Provider: Terence Matos MD Diagnosis: take as directed Last Documented On 0 10:36AM By Devi Mi [facility] Percocet 5-325 MG OR TABS 03/18/2020 - 04/02/2020 Prov ider: Terence Matos MD Diagnosis: prn pain Last Documented On 0 4:29PM By Sissy MIRANDA [facility] Medications Administered Includes: Administered Medications in patient's chart No Administered Medications Recorded Results Includes: Results from 07/04/2024 through 07/04/2025 No Results Recorded For Specified Dates Social History Description Last Updated Non-smoker 07/26/2020 Last Documented On 1 4:14PM ; [facility] No recent change in diet 02/08/2020 Last Documented On 1 4:41PM ; [facility] Not a current smoker 02/08/2020 Last Documented On 1 4:41PM ; [facility] Not using alcohol 02/08/2020 Last Documented On 1 4:41PM ; [facility] Not using drugs 02/08/2020 Last Documented On 1 4:41PM ; [facility] Sex - Male 09/01/2022 Last Documented On 3 3:45PM ; [facility] Smoking Status Unknown Medical History Includes: Medical History in patient's chart Description Last Updated Past medical and surgical history non-co ntributory 02/08/2020 Last Documented On 1 4:41PM ; [facility] Family History Includes: Family History in patient's chart Description Last Updated No significant family history 02/08/2020 Last Documented On 1 4:41PM ; [facility] Mental Status Description No anxiety Last Documented On 1 9:03AM ; [facility] No anxiety Last Documented On 1 2:05PM ; [facility] No anxiety Last Documented On 1 2:10PM ; [facility] No anxiety Last Documented On 1 1:49PM ; [facility] No anxiety Last Documented On 1 1:46PM ; [facility] No anxiety Last Documented On 1 2:28PM ; [facility] No anxiety Last Documented On 0 9:57AM ; [facility] No anxiety Last Documented On 0 3:07PM ; [facility] No anxiety Last Documented On 0 1:26PM ; [facility] No anxiety Last Documented On 0 10:12AM ; [facility] No anxiety Last Documented On 0 3:22PM ; [facility] No anxiety Last Documented On 0 11:22AM ; [facility] Allergies Includes: Active, inactive, and resolved Allergies No Known Allergies Care Needle Board Repairer Name (Identifier) Role/Relation Location/Telecom Last Documented By Terence Matos MD ([id number]) Assigned practitioner (occupation) [address], [place], [place], , [address] tel:[phone] Last Documented On 09/01/2022 3:45PM ; [facility], [facility] Yamilka Stern DO ([id number]) Primary care physician (occupation) [address] [facility], [place], [place], [place], [address] tel:[phone] Last Documented On 09/01/2022 3:45PM ; [facility], [facility] Payer Includes: Active Insurance Policies Plan Name (Payer ID) Coverage Type Member ID Group # Subscriber (ID) Relationship Effective Dates 1 - [employer] [id number] Naif 'We s' Lingerfelt Self 03/05/2020 - Unknown Last Documented On 0 2:37PM ; [facility], [facility] 2 - [employer] [id number] Naif 'Humberto' Lingerfelt Self 03/05/2020 - Unknown Last Documented On 0 2:11PM ; [facility] 3 - [facility] ([id number]) [id number] Naif 'Humberto' Lingerfelt Self 07/13/2019 - Unknown Last Documented On 0 9:18AM ; [facility], [facility]
--- OUTSIDE RECORDS SUMMARY | 2025-07-04 14:48 | XMS_ITS | Clinical Summary ---
Author Organization [facility] Address [address] [place] [address] Care Team Providers Care Flexo Operator Name Role Phone Yamilka Stern DO Primary Care Provider Allergies No known active allergies Medications inFLIXimab (REMICADE) 100 MG injection Infuse into a venous catheter. 3 Active pantoprazole (PROTONIX) 40 MG EC tablet Take 1 tablet by mouth Every Morning. 3 Active amphetamine-dextr oamphetamine (Adderall) 20 MG tabletIndications :ADHD, predominantly inattentive type Take 1 tablet by mouth 2 (Two) Times a Day. 60 tablet 5 Active methylPREDNISolon e (MEDROL) 4 MG dose packIndications:R ight elbow pain,Trapezius muscle spasm Take as directed on package instructions . 21 tablet 5 Active hydrOXYzine (ATARAX) 25 MG tabletIndications :Anxiety Take 1 tablet by mouth 3 (Three) Times a Day As Needed for Anxiety. 30 tablet 2 5 Active zolpidem CR (Ambien CR) 12.5 MG CR tabletIndications :Other insomnia Take 1 tablet by mouth At Night As Needed for Sleep. 30 tablet 5 5 Active cyclobenzaprine (FLEXERIL) 10 MG tabletIndications :Right elbow pain,Trapezius muscle spasm Take 1 tablet by mouth 3 (Three) Times a Day As Needed for Muscle Spasms. 30 tablet 1 5 Active zolpidem (AMBIEN) 5 MG tabletIndications :Other insomnia Take 2 tablets by mouth At Night As Needed for Sleep. 60 tablet 2 5 06/16/20 25 Discontin ued(Reord er) zolpidem (AMBIEN) 5 MG tabletIndications :Other insomnia Take 2 tablets by mouth At Night As Needed for Sleep. 60 tablet 2 5 06/29/20 25 Discontin ued(Alter ludwin therapy) Active Problems Problem Noted Date Diagnosed Date Left lateral epicondylitis 05/10/2025 Assessment & Plan (05/10/2025 3:10 PM EDT): History and physical consistent with left lateral epicondylitis Patient has tried conservative measures at home without relief Steroid injection given in office Advised patient to avoid activity that worsens symptoms Follow up with [facility] if symptoms do not improve Myalgia 05/13/2016 Arthralgia of both ankles 05/13/2016 Ulcerative colitis 05/13/2016 Does not feel right 05/13/2016 Adenitis 05/13/2016 Gastroesophageal reflux disease 05/13/2016 Attention or concentration deficit 12/06/2015 Insomnia 12/06/2015 Hypogonadism in male 12/06/2015 Overview (12/06/2015): Urology, Dr Roldan Elevated blood pressure 11/22/2015 ADHD, predominantly inattentive type GERD (gastroesophageal reflux disease) Encounters Date Type Department Care Team Description 06/29/2025 12:30 PM EST Office Visit [facility] [address] [place] [address] Yamilka Stern DO Anxiety (Primary Dx); Stress; Other insomnia; Right elbow pain; Trapezius muscle spasm 06/29/2025 Travel 06/16/2025 Refill [facility] [address] [place] [address] Yamilka Stern DO Other insomnia 05/16/2025 Refill [facility] [address] [place] [address] Yamilka Stern DO ADHD, predominantly inattentive type 05/10/2025 2:30 PM EDT Office Visit [facility] [address] [place] [address] Vannesa Goel PA-C Left lateral epicondylitis (Primary Dx) 05/10/2025 Travel 04/25/2025 Results Follow-Up [facility] [address] [place] [address] Yamilka Stern DO from Last 3 Months Immunizations Immunization Administration Dates Next Due Flu Vaccine Intradermal Quad 18-64YR 06/08/2018 Hepatitis A 06/08/2018 Influenza Seasonal Injectable 05/13/2019 flucelvax quad pfs =>4 YRS 06/12/2019 Family History Medical History Relation Name Comments No Known Problems Father Diabetes Maternal Aunt Diabetes Maternal Uncle Hyperlipidemia Mother Diabetes Paternal Uncle Relation Name Status Comments Father Alive Maternal Aunt Maternal Uncle Mother Alive Paternal Uncle Social History Tobacco Use Types Packs/Day Years [...] file Not on file Not on file Last Filed Vital Signs [...] Mass Index 32.03 06/29/2025 12:17 PM EST Plan of Treatment Upcoming Encounters Date Type Department Care Team (Late st Contact Info) Description 09/15/2025 4:30 PM EST Office Visit [facility] [address] [place] [id number] Yamilka Stern, DO [address] [place], [place] [id number] Health Maintenance Due Date Last Done Comments TDAP/TD VACCINES (1 - Tdap) 12/09/1995 ANNUAL PHYSICAL 11/22/2015 HEPATITIS C SCREENING 11/22/2015 COLOGUARD 2021 COLON CANCER SCREENING [address] COLONOGRAPHY 2021 FECAL OCCULT BLOOD TEST 2021 FIT Testing (1 year) 2021 INFLUENZA VACCINE 02/10/2025 06/12/2019, , 06/08/2018, Additional history exists LIPID PANEL 04/19/2026 04/19/2025, 07/21/2023 COLONOSCOPY 03/07/2031 03/07/2021 COLORECTAL CANCER SCREENING 03/07/2031 Pneumococcal Vaccine 0-49 Aged Out No longer eligible based on patient's age to complete this topic Procedures Procedure Name Priority Date/Time Associated Diagnosis Comments VITAMIN D,25-HYDROXY Routine 04/19/2025 10:40 AM EDT ADHD, predominantly inattentive type Prediabetes Other insomnia Vitamin D deficiency VITAMIN B12 Routine 04/19/2025 10:39 AM EDT ADHD, predominantly inattentive type Prediabetes Other insomnia Vitamin D deficiency LIPID PANEL W/ CHOL/HDL RATIO Routine 04/19/2025 10:39 AM EDT ADHD, predominantly inattentive type Prediabetes Other insomnia Vitamin D deficiency HEMOGLOBIN A1C Routine 04/19/2025 10:39 AM EDT ADHD, predominantly inattentive type Prediabetes Other insomnia Vitamin D deficiency COMPREHENSIVE METABOLIC PANEL Routine 04/19/2025 10:39 AM EDT ADHD, predominantly inattentive type Prediabetes Other insomnia Vitamin D deficiency SCANNED - COLONOSCOPY 03/07/2021 from Last 3 Months or Most Recently Relevant to Health Maintenance Results * Vitamin D,25-Hydroxy (04/19/2025 10:40 AM EDT) Blood Yamilka Stern DO LAB BLOOD ORDERABLES Final Result Performing Organization Address [facility] de Phone Number [facility] [address] [place] [address], [place] [phone] * Lipid Panel With / Chol / HDL Ratio (04/19/2025 10:39 AM EDT) Blood Yamilka Amy Leena DO LAB BLOOD ORDERABLES Final Result Performing Organization Address [facility] de Phone Number [facility] [address] [place] [address], [place] [phone] * Hemoglobin A1c (04/19/2025 10:39 AM EDT) Blood Yamilka Amy Leena DO LAB BLOOD ORDERABLES Final Result Performing Organization Address [facility] de Phone Number [facility] [address] [place] [address], [place] [phone] * Vitamin B12 (04/19/2025 10:39 AM EDT) Blood Yamilka Stern DO LAB BLOOD ORDERABLES Final Result Performing Organization Address [facility] de Phone Number [facility] [address] [place] [address], [place] [phone] * Comprehensive Metabolic Panel (04/19/2025 10:39 AM EDT) Blood us Yamilka Stern DO LAB BLOOD ORDERABLES Final Result [facility]) [address] [place] [address], [place] [phone] * SCANNED - COLONOSCOPY (03/07/2021) us Moreno Anton MD CHART REVIEW TABS Final Res ult from Last 3 Months or Most Recently Relevant to Health Maintenance Insurance [facility] PPO Care Teams Flexo Operator Relationship Specialty Start Date End Date Yamil[place] [address] PCP - General Family Medicine 01/10/19
--- OUTSIDE RECORDS SUMMARY | 2025-07-04 14:48 | XMS_ITS | Encounter Summary ---
Author Organization [facility] Address [address] [id number] Care Team Providers Care Tone Regulator Name Role Phone Yamilka Stern DO Primary Care Provider [phone] Encounter Details Date Type Department Care Team (Late Contact Info) Description 04/25/2025 Results Follow-Up [facility] [address] [place] [address] Yamilka Stern DO [address] [place] [address] Social History Tobacco Use Types [...] Description 09/15/2025 4:30 PM EST Office Visit [facility] [address] [place] [address] Yamilka Stern DO [address] [place] [address] documented as of this encounter Visit Diagnoses Not on filedocumented in this encounter Care Teams Tone Regulator Relationship Specialty Start Date End Date Yamilka Stern DO [address] [place] [address] PCP - General Family Medicine 01/10/19 documented as of this encounter
--- OUTSIDE RECORDS SUMMARY | 2025-07-04 14:48 | XMS_ITS | Clinical Summary ---
Author Organization [facility] , [facility] Address [address] [place] [address] Phone Care Team Providers Care Residence Life Director Name Role Phone Carlo CLAROS, Terence Frederick Unavailable [phone] Yamilka Stern DO Primary Care Provider [phone] Reason for Referral 11/15/2020 Encounter for WC FOLLOW UP/EST Date Recorded Target Due Date Referral Type Referring Prov ider Reason For Referral 11/15/2020 Terence Matos MD see pcp for bp Last Documented On 1 2:53PM ; [facility] Reason for Visit and Chief Complaint The Chief Complaint is: right biceps tendon repair 03/21/20 Problems Includes: Problems addressed during this encounter and other active Problems All Visits Onset Date Date of Diagnosis Resolved Date Provider Condition Status Bone Pain in Right Upper Arm 03/06/2020 03/06/2020 Terence Matos MD Active Last Documented On 5 1:40AM ; [facility] Right Elbow Bone Pain 02/08/2020 02/08/2020 Jewell Handley MD Active Last Documented On 5 1:40AM ; [facility] Plan of Treatment Patient was seen by myself and Dr. Carlo Broderick PA-C. 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 - Last Documented On 02/07/2021 4:11PM ; [facility] Left biceps tendon repair March 21, 2020 - Last Documented On 02/07/2021 4:11PM ; [facility] Medical Equipment - Implanted Devices Includes: Current Devices No Medical Equipment Recorded Medications Includes: Medications discussed during this encounter and other current Medications Current Medications (continue as prescribed) Amphet-Dextroamphet 3-Bead E R 25 MG Oral Capsule Extended Release 24 Hour 01/12/2020 Provider: Yamilka Stern DO Diagnosis: Last Documented On 0 11:09AM By Jenelle Mcmillan ; [facility] Zolpidem Tartrate ER 12.5 MG Oral Tablet Extended Release 11/17/2019 Provider: Yamilka Stern DO Diagnosis: Last Documented On 0 11:09AM By Jenelle Mcmillan ; [facility], [facility] Past Medications on file Medrol 4 MG Oral Tablet Ther apy Pack 06/28/2020 - 07/28/2020 Provider: Terence Matos MD Diagnosis: take as directed Last Documented On 0 10:36AM By Devi Estrada ; [facility], [facility] Percocet 5-325 MG OR TABS 03/18/2020 - 04/02/2020 Prov ider: Terence Matos MD Diagnosis: prn pain Last Documented On 0 4:29PM By Sissy Lynch ; [facility], [facility] Medications Administered Includes: Administered Medications from this encounter No Administered Medications Recorded Vital Signs Includes: Vital Signs from this encounter Vital Name 11/15/2020 02:51P Blood Pressure Sitting (mmHg) 147/111 Pulse Rate-Sitting (bpm) 78 Height (in) 72 Weight (lb) 215 Body Mass Index (kg/m2) 29.2 Body Surface Area (m2) 2.2 Note: efrain Last Documented: On 11/15/2020 2:53PM ; [facility] Results Includes: Results discussed during this encounter No Results Recorded For Specified Dates History of Present Illness Includes: History of Present Illness from this encounter OBEY Colmenares (Wes) is a 44 year old male. - Allergy list reviewed - Problem list reviewed - Medication reconciliation performed - Medication list reviewed Patient's here today for follow-up of his right biceps tendon repair and review the EMG study as he was having numbness and tingling in the last 2 fingers. This started after the procedure. He still doing physical therapy says that with the use of the nerve glides and PT and some dry needling numbness and tingling is not as bad. Social History Description Last Updated Non-smoker 11/15/2020 Last Documented On 1 4:11PM ; [facility] No recent change in diet 02/08/2020 Last Documented On 1 2:10PM ; [facility] Not a current smoker 02/08/2020 Last Documented On 1 2:10PM ; [facility] Not using alcohol 02/08/2020 Last Documented On 1 2:10PM ; [facility] Not using drugs 02/08/2020 Last Documented On 1 2:10PM ; [facility] Sex - Male 09/01/2022 Last Documented On 3 3:45PM ; [facility] Smoking Status Unknown Procedures and Surgical History Includes: Procedures from this encounter Procedures Code Diagnosis Performing Provider Service L ocation Service Date use of tobacco assessment performed 1000F Last Documented On 1 2:10PM ; [facility] referral to physician see pcp for bp Last Documented On 1 2:53PM ; [facility] Medical History Includes: Medical History addressed during this encounter Description Last Updated Past medical and surgical history non-co ntributory 02/08/2020 Last Documented On 1 2:10PM ; [facility] Family History Includes: Family History addressed during this encounter Description Last Updated No significant family history 02/08/2020 Last Documented On 1 2:10PM ; [facility] Review of Systems Includes: Review [...] No complaint of seasonal allergic reaction. Reviewed 11/15/2020 Mental Status Includes: Mental Status from this encounter Description No anxiety Last Documented On 2:10PM ; [facility] Physical Exam Includes: Physical Exam from this encounter Allergies Includes: Active Allergies No Known Allergies Care Residence Life Director Name (Identifier) Role/Relation Location/Telecom Last Documented By Terence Matos MD ([id number]) Assigned practitioner (occupation) [address] [place], [place], , [address] tel:[phone] Last Documented On 09/01/2022 3:45PM ; [facility] Yamilka Stern DO ([id number]) Primary care physician (occupation) [place], [place], , [address] tel:[phone] Last Documented On 09/01/2022 3:45PM ; [facility] Encounters Encounter Provider Location (Healthcare Service Location) Date Check-In Time Check-Out Time Diagnosis Encounter Disposition WC FOLLOW UP/EST Terence Matos MD [facility] 2020 2:05PM 3:28PM Payer Includes: Active Insurance Policies Plan Name (Payer ID) Coverage Type Member ID Group # Subscriber (ID) Relationship Effective Dates 1 - KELLY [id number] Naif little Lingerfelt Self 03/05/2020 - Unknown Last Documented On 0 2:37PM ; [facility], [facility] 2 - Desiree [id number] Disla (Wes) Lingerfelt Self 03/05/2020 - Unknown Last Documented On 0 2:11PM ; [facility], [facility] 3 - BS [facility] ([id number]) [id number] Disla (Wes) Lingerfelt Self 07/13/2019 - Unknown Last Documented On 0 9:18AM ; [facility], [facility]
--- OUTSIDE RECORDS SUMMARY | 2025-07-04 14:48 | XMS_ITS | Clinical Summary ---
Author Organization [facility] , [facility] Address [address] [place] [address] Phone Care Team Providers Care Program Management Analyst Name Role Phone Carlo CLAROS, Terence Frederick Unavailable [phone] Yamilka Stern DO Primary Care Provider [phone] Reason for Visit and Chief Complaint EMG Problems Includes: Problems addressed during this encounter and other active Problems All Visits Onset Date Date of Diagnosis Resolved Date Provider Condition Status Bone Pain in Right Upper Arm 03/06/2020 03/06/2020 Terence Matos MD Active Last Documented On 5 1:40AM ; [facility] Right Elbow Bone Pain 02/08/2020 02/08/2020 Jewell Handley MD Active Last Documented On 5 1:40AM ; [facility] Plan of Treatment No Plan of [...] On 0 11:09AM By Jenelle Mcmillan ; [facility] Zolpidem Tartrate ER 12.5 MG Oral Tablet Extended Release 11/17/2019 Provider: Yamilka Stern DO Diagnosis: Last Documented On 0 11:09AM By Jenelle Mcmillan ; [facility], [facility] Medications Administered Includes: Administered Medications from this encounter No Administered Medications Recorded Results Includes: Results discussed during this encounter No Results Recorded For Specified Dates History of Present Illness Includes: History of Present Illness from this encounter No History of Present Illness Recorded Social History Description Last Updated Sex - Male 09/01/2022 Last Documented On 3 3:45PM ; [facility], [facility] Smoking Status Unknown Medical History Includes: Medical [...] Includes: Active Allergies No Known Allergies Care Program Management Analyst Name (Identifier) Role/Relation Location/Telecom Last Documented By Terence Matos MD ([id number]) Assigned practitioner (occupation) [address] [place], [place], , [address] tel:[phone] Last Documented On 09/01/2022 3:45PM ; [facility] Yamilka Stern DO ([id number]) Primary care physician (occupation) [address] [place], [place], , [address] tel:[phone] Last Documented On 09/01/2022 3:45PM ; [facility], [facility] Encounters Encounter Provider Location (Healthcare Service Location) Date Check-In Time Check-Out Time Diagnosis Encounter Disposition [facility] 021 2:44PM 11:59PM Payer Includes: Active Insurance Policies Plan Name (Payer ID) Coverage Type Member ID Group # Subscriber (ID) Relationship Effective Dates 1 - [employer] [id number] Naif 'We s' Lingerfelt Self 03/05/2020 - Unknown Last Documented On 0 2:37PM ; [facility], [facility] 2 - Desiree [id number] Naif 'Humberto' Lingerfelt Self 03/05/2020 - Unknown Last Documented On 0 2:11PM ; [facility], [facility] 3 - [facility] ([id number]) [id number] Naif 'Humberto' Lingerfelt Self 07/13/2019 - Unknown Last Documented On 0 9:18AM ; [facility]
--- OUTSIDE RECORDS SUMMARY | 2025-07-04 14:48 | XMS_ITS ---
Care Plan - [facility] Created on: July 04, 2025 Naif ColmenaresHumberto' : 1975 Sex: Male Author Organization [facility] Address [address] [place] [address] Phone Care Team Providers Care Women'S Soccer Coach Name Role Phone Carlo CLAROS, Terence Frederick Unavailable [phone] Yamilka Stern DO Primary Care Provider [phone]
--- OUTSIDE RECORDS SUMMARY | 2025-07-04 14:48 | XMS_ITS | Clinical Summary ---
Author Organization [employer] Address [address] [facility] [place] [address] Care Team Providers Care Facing End Trimmer Name Role Phone No, Pcp SCOURING MACHINE OPERATOR Primary Care Provider Unavailabl e Allergies No known active allergies Medications dextroamphetamin e-amphetamine 20 mg tab TAKE 1 TABLET BY MOUTH TWICE A DAY 0 10/22/2016 Active zolpidem (AMBIEN CR) 12.5 MG CR tablet TAKE 1 TABLET BY MOUTH AT NIGHT NEEDED FOR SLEEP 5 11/27/2016 Active inFLIXimab (REMICADE) 100 mg injection Infuse into a venous catheter. 11/30/2012 Active inFLIXimab (REMICADE) 100 mg injection Infuse into a venous catheter. Active metFORMIN (GLUCOPHAGE) 500 MG tablet 12/29/2018 Active ergocalciferol (ERGOCALCIFEROL) 50,000 unit capsule 12/30/2018 Active zolpidem (AMBIEN CR) 12.5 MG CR tablet TAKE 1 TABLET BY MOUTH AT NIGHT NEEDED FOR SLEEP. 5 11/24/2018 Active dextroamphetamin e-amphetamine 20 mg tab TAKE 1 TABLET BY MOUTH TWICE A DAY 05/25/2019 Active Immunizations Immunization Administration Dates Next Due Flucelvax Trivalent PFS IM; Without Preservative (18+ mos) 06/08/2018 Havrix Adult Prefilled Syringe 06/08/2018 Social History Tobacco Use Types Packs/Day Years Used Date Smoking Tobacco: Never Smokeless Tobacco: Never Tobacco Cessation:Counseling Given: No Sex and Gender Information Value Date Recorded Sex Assigned at Not on file Legal Sex Male 10:43 AM EST Gender Identity Not on file Sexual Orientation Not on file Last Filed Vital Signs Vital Sign Reading Time Taken Comments Blood Pressure 132/76 10/03/2019 5:03 PM EDT Pulse 96 10/03/2019 5:03 PM EDT Temperature 36.6 C (97.9 F) 10/03/2019 5:03 PM EDT Respiratory Rate 16 10/03/2019 5:03 PM EDT Oxygen Saturation 99% 10/03/2019 5:03 PM EDT Inhaled Oxygen Concentration - - Weight 94.3 kg (208 lb) 10/03/2019 5:03 PM EDT Height 180.3 cm (5' 11 ) 10/03/2019 5:03 PM EDT Body Mass Index 29.01 10/03/2019 5:03 PM EDT Plan of Treatment Not on file Medical Devices Not on file Care Teams Facing End Trimmer Relationship Specialty Start Date End Date No, Pcp, SCOURING MACHINE OPERATOR N/A Do not use PCP - General 09/14/18
--- OUTSIDE RECORDS SUMMARY | 2025-07-04 14:48 | XMS_ITS | Encounter Summary ---
Author Organization [employer] ([place], [place], [place], [place], [place]) Address [address] [place] [address] Care Team Providers Care Slag Worker Name Role Phone Luisito Pino II, Md, MD Primary Care Provider [phone] [facility], Provider Not In The System Primary Care Provider Unavailable Luisito Pino II, Md, MD Unavailable [phone] Yamilka Stern DO Primary Care Provider [phone] Encounter Details Date Type Department Care Team (Late st Contact Info) Description 08/27/2018 Transcribed Document [facility] Family Medicine [address] [place] [address] ProviderMehran MD [address] [place] [address] Social History Tobacco Use Types Packs/Day Years Used Date Smoking Tobacco: Never Assessed Sex and Gender Information Value Date Recorded Sex Assigned at Male 11/14/2022 3:41 PM CDT Legal Sex Male 2:17 PM CDT Gender Identity Male 11/14/2022 3:41 PM CDT Sexual Orientation Not on file documented as of this encounter Miscellaneous Notes * Cerner Conversion Note - Historical ProviderMD - 08/27/2018 10:25 AM 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, [place] [address] Patient Copy Patient Information: Name: ROBERT HERNANDEZ Current Date: 08/27/2018 10:25:27 : 1975 Patient Address: [place] [address] Patient Attending Physician: LUISITO PINO MD-GAE Primary Care Provider: YAMILKA STERN MD-[facility] Primary Care Provider Discharge Diagnosis: Weight on Admission: 210 lb, 0 oz Comment: Discharge Instructions: Immunizations Documented During Stay: No Immunizations Found Heart Failure Discharge Instructions (if any): Stroke Related Discharge Instructions (if any): Warfarin Related Discharge Instructions (if any): Final Medication List: Other Medications inFLIXimab (Remicade) Every 8 Weeks. loratadine (Claritin 24 Hour Allergy) 10 Milligram(s) Oral Every Day. multivitamin with minerals (Multivitamins and Minerals) 1 tablet Oral Every Day. Patient Allergies: No Known Allergies Medication Instructions: Take your medications faithfully. Do NOT skip medication. Do NOT stop taking medications without the direction of a physician. Carry a list of your medications with you at all times, and take this medication list with you to your first follow up visit. Report any side effects. Avoid herbal remedies unless discussed with your physician. As part of your treatment plan, your physician may have prescribed a limited course of a controlled substance. This medication may be given to help people with moderate or severe pain or for other medical conditions, but there are risks involved with treatment. Common side effects may include nausea, constipation, drowsiness, sweating, itching, dry mouth, and rash. More serious side effects may include cognitive and motor impairment, like problems with thinking, concentrating, alertness, and movement (e.g. slowed reflexes), and driving and operating heavy machinery can be dangerous. It is important for you to talk to your physician if you have these side effects or questions. These controlled substances can produce physical dependence and be habit-forming if taken for an extended period of time, which means that the body has gotten used to them and may experience withdrawal symptoms if they are abruptly stopped. Withdrawal symptoms can include runny nose, sweating, goose bumps, diarrhea, abdominal cramping, rapid heartbeat, difficulty sleeping, and nervousness. CIGARETTE SMOKING: The facts are clear, cigarette smoking will shorten your life. Smoking can cause many illnesses along the way. As a healthcare provider, we recommend that you stop smoking. Assistance with quitting is available by contacting 3-795-KCOC-NOW. This is a free resource providing counseling, support, and referral. Or you may contact your personal physician. 4 WAYS TO GET AHEAD OF SEPSIS SEPSIS is a MEDICAL EMERGENCY. Time matters! Infections put you and your family at risk for a life-threatening condition called sepsis. Sepsis is the body???s extreme response to an infection. It is life-threatening, and without timely treatment, sepsis can rapidly lead to tissue damage, organ failure, and . Sepsis happens when an infection you already have???in your skin, lungs, urinary tract or somewhere else???triggers a chain reaction throughout your body. 1 PREVENT INFECTIONS Take good care of chronic conditions. Talk to your doctor about getting the recommended vaccines. 2 PRACTICE GOOD HYGIENE Wash your hands frequently. Keep cuts or open sores clean and covered until they are healed. 3 KNOW THE SYMPTOMS Confusion or disorientation Shortness of breath High heart rate Fever, shivering, or feeling very cold Extreme pain or discomfort Clammy or sweaty skin 4 ACT FAST Get medical care IMMEDIATELY if you suspect sepsis or if you have an infection that???s not getting better or is getting worse. To learn more about sepsis and how to prevent infections, visit www.cdc.gov/sepsis. STROKE is an EMERGENCY Every Minute Counts ACT F.A.S.T! FACE ?? Facial droop ?? Uneven smile ARM ?? Arm numbness ?? Arm weakness SPEECH ?? Slurred speech ?? Difficulty speaking or understanding TIME ?? Call 911 and get to the hospital immediately Have the ambulance go to the nearest stroke center. STROKE Risk Factors High blood pressure High cholesterol Heart Disease Diabetes Smoking Heavy alcohol use Physical inactivity and obesity Atrial Fibrillation (irregular heartbeat) Family history of stroke Reminder: Be sure to sign up for the [email or web address] patient portal, which gives you 02/02 access to your medical information ??? including these discharge instructions ??? using your computer, smartphone, or tablet. Just go to [employer] to get started. Questions? Call . [facility] would like to thank you for allowing us to assist you with your healthcare needs. I, ROBERT HERNANDEZ, (or lead customer service representative) have received the above patient education materials/instructions and have verbalized understanding: Patient Signature _ Date/Time Patient Commercial Lines Account Manager Signature (if needed) Date/Time Clinician/Hospital Commercial Lines Account Manager Signature (if needed) Date/Time Electronically signed by Massimo Peterson Conversion Occupational Therapy Professor Cerner at 10/30/2022 8:55 AM CDT documented in this encounter Plan of Treatment Not on file documented as of this encounter Visit Diagnoses Not on filedocumented in this encounter Care Teams Slag Worker Relationship Specialty Start Date End Date Odette HERCULES Md, MD Luisito [address] [place] [phone] PCP - General Gastroenterology 05/30/22 11/13/22 [facility], Provider Not In The System, [place] [address] PCP - General 11/14/22 09/22/23 Yamilka Stern, DO [address] [place] [address] PCP - General Family Medicine 09/23/23 Odette HERCULES Md, MD Luisito [address] [address] Gastroenterology 11/14/22 documented as of this encounter
--- OUTSIDE RECORDS SUMMARY | 2025-07-04 14:48 | XMS_ITS | Encounter Summary ---
Author Organization [employer] ([place], [place], [place], [place], [place]) Address [address] [place] [address] Care Team Providers Care Mineral Industry Teacher Name Role Phone Mark Pino II, Md, MD Primary Care Provider [phone] [facility], Provider Not In The System Primary Care Provider Unavailable Mark Pino II, Md, MD Unavailable [phone] Yamilka Stern DO Primary Care Provider [phone] Encounter Details Date Type Department Care Team (Late st Contact Info) Description 10/26/2020 Transcribed Document [facility] Family Medicine [address] [place] [address] ProviderMehran MD [address] [place] [address] Social History Tobacco Use Types Packs/Day Years Used Date Smoking Tobacco: Never Assessed Sex and Gender Information Value Date Recorded Sex Assigned at Male 11/14/2022 3:41 PM CDT Legal Sex Male 2:17 PM CDT Gender Identity Male 11/14/2022 3:41 PM CDT Sexual Orientation Not on file documented as of this encounter Miscellaneous Notes * Cerner Conversion Note - Historical ProviderMD - 10/26/2020 7:18 AM CDT Outpatient Visit History Entered On: 10/26/2020 7:22 EDT Performed On: 10/26/2020 7:18 EDT by JAMES JONES RN Vital Measurements Peripheral Pulse Rate : 87 bpm Respiratory Rate : 18 Breaths/Min Systolic Blood Pressure : 120 mmHg Diastolic Blood Pressure : 88 mmHg Oxygen Saturation : 98 % Oxygen Therapy Mode : Room air AJMES JONES RN - 10/26/2020 7:23 EDT Temperature Source : Temporal artery scanning Temperature Mode : Fahrenheit Temperature, Fahrenheit : 97.1 Deg F Clinical Temperature, C : 36.2 Deg C Pulse Method : Non-Invasive BP Device JAMES JONES RN - 10/26/2020 7:18 EDT Height and Weight, Clinical Dosing Height Source : Stated Height Entry Format : ServiceNow Height, Feet : 5 ft(Converted to: 152 cm, 60 Inch) Height, Inches : 11 Inch(Converted to: 0 ft 11 Inch, 27.94 cm) Clinical Height : 180.34 cm Weight Source : Standing scale Weight Entry Format : [place] Clinical Dosing Weight : 103.64 kg Weight, Pounds : 228 lb Body Surface Area (BSA) : 2.23 m2 Body Mass Index : 31.9 kg/m2 (HI) [place] Body Weight : 74 kg JAMES JONES RN - 10/26/2020 7:18 EDT Health Histories Smoking Status : Never (less than 100 in lifetime; none in last 30 days) Smokeless Tobacco Status : Never JAMES JONES RN - 10/26/2020 7:18 EDT Social History (As Of: 10/26/2020 07:22:01 EDT) Tobacco: Smoking Status Never smoker. Second Hand Smoke Exposure: No. (Last Updated: 02/09/2013 15:17:05 AST by JAMES JONES RN) Alcohol: Use in Last 12 Months: No. (Last Updated: 02/09/2013 15:16:13 AST by JAMES JONES RN) Substance Abuse: Drug Use Hx: No. (Last Updated: 02/09/2013 15:16:35 AST by JAMES JONES RN) Exercise: Exercise frequency: Daily. Comments: 08/17/2013 8:31 - JAMES JONES RN: Chel (Last Updated: 08/17/2013 08:31:04 EST by JAMES JONES RN) Infectious Disease History Has the patient ever been tested for COVID-19? : No, Patient stated Does patient have symptoms of COVID-19? : No COVID19 Screening : No Experiencing Infectious Disease Symptoms : No symptoms Physical contact outside US in the last 30 days : No Infectious Disease History : Chicken pox/Shingles Tuberculosis Symptoms : None JAMES JONES RN - 10/26/2020 7:18 EDT COVID19 PreProcedure Screening Is this an Emergent or Add on Procedure? : No Date PreProcedure COVID-19 test known? : No Has patient been isolated since the test : N/A - PreProcedure, in-person visit Exposed to COVID19 symptoms since test? : N/A - PreProcedure, in-person visit JAMES JONES RN - 10/26/2020 7:18 EDT Advance Directive Patient has Advance Directive *Q : No, patient refuses Advance Directive information JAMES JONES RN - 10/26/2020 7:18 EDT [place] Suicide Severity Rating Scale (C-SSRS) CSSRS Past Month Wish to be : No CSSRS Past Month Suicidal Thoughts : No CSSRS Lifetime Suicide Behavior : No Suicide Severity Rating Score : 0 Suicide Severity Rating : No Additional Care Required at this time JAMES JONES RN - 10/26/2020 7:18 EDT Psychosocial History Chronic/Terminal Illness w/Freq Visits : Yes Do You Have a History of the Following? : Patient denies history Currently in Unsafe Situation : No JAMES JONES RN - 10/26/2020 7:18 EDT Fall Risk Scales ABCs Fall Injury Risk Identification : None TRIVEDI Hx Falls Immediate/Within 3 Months : No Trivedi Secondary Diagnosis : Yes TRIVEDI Use of Ambulatory Aid : None TRIVEDI IV Therapy or IV Access : Yes Trivedi Gait/Transferring : Normal, bedrest, immobile Trivedi Mental Status : Oriented to own ability Trivedi Fall Risk Score : 35 TRIVEDI Fall Scale Risk Level : 25-45 Medium Risk [place] Fall Interventions : Adequate lighting, Bed in low position, Call device within reach, Hourly comfort/safety rounds, Non-slip footwear, Personal items within reach, Room free of clutter/spills, Wheels locked, Wires/Cords secured JAMES JONES RN - 10/26/2020 7:18 EDT Pain Assessment Pain Assessment : Initial assessment Intensity : 0 JAMES JONES RN - 10/26/2020 7:18 EDT Electronically signed by Kristen [facility] Conversion Manager Cargo Cerner at 10/30/2022 8:54 AM CDT documented in this encounter Plan of Treatment Not on file documented as of this encounter Visit Diagnoses Not on filedocumented in this encounter Care Teams Mineral Industry Teacher Relationship Specialty Start Date End Date Odette HERCULES Md, MD Mark [address] [address] PCP - General Gastroenterology 05/30/22 11/13/22 [facility], Provider Not In The System, [place] [address] PCP - General 11/14/22 09/22/23 Yamilka Stern, [address] [place] [address] PCP - General Family Medicine 09/23/23 Odette HERCULES Md, MD Mark [address] [address] Gastroenterology 11/14/22 documented as of this encounter
--- OUTSIDE RECORDS SUMMARY | 2025-07-04 14:48 | XMS_ITS | Clinical Summary ---
Author Organization [facility] , [facility] Address [address] [place] [address] Phone Care Team Providers Care Business Account Specialist Name Role Phone Carlo CLAROS, Terence Frederick Unavailable [phone] Yamilka Stern DO Primary Care Provider [phone] Reason for Referral 12/13/2020 Encounter for WC FOLLOW UP/EST Date Recorded Target Due Date Referral Type Referring Prov ider Reason For Referral 12/13/2020 Terence Matos MD see pcp for bp Last Documented On 1 2:05PM ; [facility] Reason for Visit and Chief Complaint The Chief Complaint is: right biceps tendon repair 03/21/20 Problems Includes: Problems addressed during this encounter and other active Problems All Visits Onset Date Date of Diagnosis Resolved Date Provider Condition Status Bone Pain in Right Upper Arm 03/06/2020 03/06/2020 Terence Matos MD Active Last Documented On 5 1:40AM ; [facility] Right Elbow Bone Pain 02/08/2020 02/08/2020 Jewell Handley MD Active Last Documented On 5 1:40AM ; [facility] Plan of Treatment Pending Tests Order Diagnosis Results Due Ordering P rovider Therapy - Physical Therapy Arm 12/13/20 Terence Matos MD Last Documented On 1 4:09PM ; [facility] Assessments Includes: Assessments from this encounter No [...] 11:09AM By Jenelle Mcmillan ; [facility] Zolpidem Tartrate ER 12.5 MG Oral Tablet Extended Release 11/17/2019 Provider: Yamilka Stern DO Diagnosis: Last Documented On 0 11:09AM By Jenelle Mcmillan ; [facility] Past Medications on file Medrol 4 MG Oral Tablet Ther apy Pack 06/28/2020 - 07/28/2020 Provider: Terence Matos MD Diagnosis: take as directed Last Documented On 0 10:36AM By Devi Estrada ; [facility] Percocet 5-325 MG OR TABS 03/18/2020 - 04/02/2020 Prov ider: Terence Matos MD Diagnosis: prn pain Last Documented On 0 4:29PM By Sissy Lynch ; [facility] Medications Administered Includes: Administered Medications from this encounter No Administered Medications Recorded Vital Signs Includes: Vital Signs from this encounter Vital Name 12/13/2020 02:08P Blood Pressure Sitting (mmHg) 153/94 Pulse Rate-Sitting (bpm) 108 Height (in) 72 Weight (lb) 215 Body Mass Index (kg/m2) 29.2 Body Surface Area (m2) 2.2 Note: efrain Last Documented: On 12/13/2020 2:10PM ; [facility] Results Includes: Results discussed during this encounter No Results Recorded For Specified Dates History of Present Illness Includes: History of Present Illness from this encounter OBEY Colmenares (Wes) is a 45 year old male. - Allergy list reviewed - Problem list reviewed - Medication reconciliation performed - Medication list reviewed Social History Description Last Updated Non-smoker 12/13/2020 Last Documented On 1 4:09PM ; [facility] No recent change in diet 02/08/2020 Last Documented On 1 2:05PM ; [facility] Not a current smoker 02/08/2020 Last Documented On 1 2:05PM ; [facility] Not using alcohol 02/08/2020 Last Documented On 1 2:05PM ; [facility] Not using drugs 02/08/2020 Last Documented On 1 2:05PM ; [facility] Sex - Male 09/01/2022 Last Documented On 3 3:45PM ; [facility] Smoking Status Unknown Procedures and Surgical History Includes: Procedures from this encounter Procedures Code Diagnosis Performing Provider Service L ocation Service Date use of tobacco assessment performed 1000F Last Documented On 1 2:05PM ; [facility] referral to physician see pcp for bp Last Documented On 1 2:05PM ; [facility] Medical History Includes: Medical History addressed during this encounter Description Last Updated Past medical and surgical history non-co ntributory 02/08/2020 Last Documented On 1 2:05PM ; [facility] Family History Includes: Family History addressed during this encounter Description Last Updated No significant family history 02/08/2020 Last Documented On 1 2:05PM ; [facility] Review of Systems Includes: Review of Systems [...] encounter Description No anxiety Last Documented On 2:05PM ; [facility], [facility] Physical Exam Includes: Physical Exam from this encounter Allergies Includes: Active Allergies No Known Allergies Care Business Account Specialist Name (Identifier) Role/Relation Location/Telecom Last Documented By Terence Matos MD ([id number]) Assigned practitioner (occupation) [address] [place], , [address] tel:[phone] Last Documented On 09/01/2022 3:45PM ; [facility], [facility] Yamilka Stern DO ([id number]) Primary care physician (occupation) [address] , [place], [place], , [address] tel:[phone] Last Documented On 09/01/2022 3:45PM ; [facility], [facility] Encounters Encounter Provider Location (Healthcare Service Location) Date Check-In Time Check-Out Time Diagnosis Encounter Disposition WC FOLLOW UP/EST Terence Matos MD [facility] 2020 2:01PM 2:24PM Payer Includes: Active Insurance Policies Plan Name (Payer ID) Coverage Type Member ID Group # Subscriber (ID) Relationship Effective Dates 1 - [employer] [id number] Naif fernandez' Lingerfelt Self 03/05/2020 - Unknown Last Documented On 0 2:37PM ; [facility], [facility] 2 - MedRisk [id number] Naif Duval' [place]ingerfelt Self 03/05/2020 - Unknown Last Documented On 0 2:11PM ; [facility], [facility] 3 - BS [facility] ([id number]) [id number] Naif Duval' [place]ingerfelt Self 07/13/2019 - Unknown Last Documented On 0 9:18AM ; [facility], [facility]
--- OUTSIDE RECORDS SUMMARY | 2025-07-04 14:49 | XMS_ITS | Encounter Summary ---
[facility] Address [address] [place] [address] Care Team Providers Care Can Conveyor Feeder Name Role Phone Yamilka Stern DO Primary Care Provider [phone] Reason for Visit * Reason Comments Med Refill Encounter Details Date Type Department Care Team (Late Contact Info) Description 11/04/2021 Refill [facility] MED[facility]INE [address] [place] [address] Yamilka Stern DO [address] [place] [address] Other insomnia Social History Tobacco Use Types Packs/Day Years Used Date Smoking Tobacco: Never Smokeless Tobacco: Never Alcohol Use Standard Drinks/Week Comments Yes 0 (1 standard drink = 0.6 oz pur e alcohol) beer on occasion PHQ-2 Answer Date Recorded Retired PHQ-9: Brief Depression Severity Measure Score 0 10/28/2021 Sex and Gender Information Value Date Recorded [...] Description 09/15/2025 4:30 PM EST Office Visit [facility] FAMILY [facility] [address] [place] [address] Yamilka Stern DO [address] [place] [address] documented as of this encounter Visit Diagnoses Diagnosis Other insomnia documented in this encounter Care Teams Can Conveyor Feeder Relationship Specialty Start Date End Date Yamilka Stern DO [address] [place] [address] PCP - General Family Medicine 01/10/19 documented as of this encounter
--- OUTSIDE RECORDS SUMMARY | 2025-07-04 14:49 | XMS_ITS | Encounter Summary ---
Author Organization [employer] ([place], [place], [place], [place], [place]) Address [address] [place] [address] Care Team Providers Care Accounting Teacher Name Role Phone Mark Pino II, Md, MD Primary Care Provider [phone] [facility], Provider Not In The System Primary Care Provider Unavailable Mark Pino II, Md, MD Unavailable [phone] Yamilka Stern DO Primary Care Provider [phone] Encounter Details Date Type Department Care Team (Late st Contact Info) Description 06/14/2021 Transcribed Document [facility] [place] [facility] [place] [address] ProviderMehran MD [address] [place] [address] Social History Tobacco Use Types Packs/Day Years Used Date Smoking Tobacco: Never Assessed Sex and Gender Information Value Date Recorded Sex Assigned at Male 11/14/2022 3:41 PM CDT Legal Sex Male 2:17 PM CDT Gender Identity Male 11/14/2022 3:41 PM CDT Sexual Orientation Not on file documented as of this encounter Miscellaneous Notes * Cerner Conversion Note - Historical ProviderMD - 06/14/2021 7:27 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 History Entered On: 06/14/2021 7:30 EST Performed On: 06/14/2021 7:27 EST by WENDY GARRIDO Vital Measurements Temperature Source : Temporal artery scanning Temperature Mode : Fahrenheit Temperature, Fahrenheit : 97.5 Deg F Clinical Temperature, C : 36.4 Deg C Pulse Method : Pulse Oximetry Peripheral Pulse Rate : 84 bpm Respiratory Rate : 16 Breaths/Min Blood Pressure Location : Arm, right upper Blood Pressure Source : Non-Invasive BP Device Blood Pressure Position : Sitting Systolic Blood Pressure : 119 mmHg Diastolic Blood Pressure : 56 mmHg (LOW) Oxygen Saturation : 98 % Oxygen Therapy Mode : Room air WENDY GARRIDO 06/14/2021 7:27 EST Height and Weight, Clinical Dosing Height Source : Stated Height Entry Format : Lumicity Height, Feet : 5 ft(Converted to: 152 cm, 60 Inch) Height, Inches : 10 Inch(Converted to: 0 ft 10 Inch, 25.40 cm) Clinical Height : 177.8 cm Weight Source : Standing scale Weight Entry Format : Lumicity Clinical Dosing Weight : 97.73 kg Weight, Pounds : 215 lb Body Surface Area (BSA) : 2.15 m2 Body Mass Index : 30.9 kg/m2 (HI) [place] Body Weight : 72 kg [facility] 06/14/2021 7:27 EST Quick Look Assessment Level of Consciousness : Alert, Awake Affect/Behavior : Appropriate, Calm, Cooperative Orientation : Oriented x 4 Skin Temperature : Warm Skin Description : Normal for ethnicity [facility] 06/14/2021 7:27 EST Health Histories Smoking Status : Never (less than 100 in lifetime; none in last 30 days) Smokeless Tobacco Status : Never [facility] 06/14/2021 7:27 EST Social History (As Of: 06/14/2021 07:30:35 EST) Tobacco: Smoking Status Never smoker. Second Hand Smoke Exposure: No. (Last Updated: 02/09/2013 15:17:05 AST by JAMES JONES RN) Alcohol: Use in Last 12 Months: No. (Last Updated: 02/09/2013 15:16:13 AST by JAMES JONES RN) Substance Abuse: Drug Use Hx: No. (Last Updated: 02/09/2013 15:16:35 AST by JAMES JONES RN) Exercise: Exercise frequency: Daily. Comments: 08/17/2013 8:31 - JAMES JONES RN: [place] (Last Updated: 08/17/2013 08:31:04 EST by ROBERT, JAMES, RN) Infectious Disease History Does patient have symptoms of COVID-19? : No Has the Patient Been Tested for COVID-19 in the last 14 days? : No, Patient stated Does the Patient state known exposure to a COVID-19 positive case in the last 14 days? : No Patient Vaccinated for COVID-19 : Not vaccinated Does Patient want a COVID-19 Vaccine? : No WENDY GARRIDO 06/14/2021 7:27 EST Infectious Disease Risk Screening Grid Cough < 2 wks of unknown origin : NO Cough > 2 weeks : NO Blood in Sputum : NO Fever or self-reported Fever : NO Rash of unknown origin : NO Headache : NO Stiff neck : NO Night Sweats : NO Unexplained Weight Loss : NO Diarrhea (3 episode per day) : NO WENDY GARRIDO 06/14/2021 7:27 EST Physical contact outside US in the last 30 days : No Hospitalized in Foreign Country : No Infectious Disease History : Chicken pox/Shingles INF Disease TB Screening Calc : 0 INF Disease Recent Travel Calc : 0 WENDY GARRIDO 06/14/2021 7:27 EST COVID19 PreProcedure Screening Is this an Emergent or Add on Procedure? : No Date PreProcedure COVID-19 test known? : No Has patient been isolated since the test : No Exposed to COVID19 symptoms since test? : No WENDY GARRIDO 06/14/2021 7:27 EST Advance Directive Patient has Advance Directive *Q : No, patient refuses Advance Directive information WENDY GARRIDO 06/14/2021 7:27 EST [place] Suicide Severity Rating Scale (C-SSRS) CSSRS Past Month Wish to be : No CSSRS Past Month Suicidal Thoughts : No CSSRS Lifetime Suicide Behavior : No Suicide Severity Rating Score : 0 Suicide Severity Rating : No Additional Care Required at this time WENDY GARRIDO 06/14/2021 7:27 EST Psychosocial History Chronic/Terminal Illness w/Freq Visits : Yes Do You Have a History of the Following? : Patient denies history Currently in Unsafe Situation : No WENDY GARRIDO 06/14/2021 7:27 EST Fall Risk Scales ABCs Fall Injury Risk Identification : None MUNOZ Hx Falls Immediate/Within 3 Months : No Munoz Secondary Diagnosis : Yes MUNOZ Use of Ambulatory Aid : None MUNOZ IV Therapy or IV Access : Yes Munoz Gait/Transferring : Normal, bedrest, immobile [place] Mental Status : Oriented to own ability [place] Fall Risk Score : 35 MUNOZ Fall Scale Risk Level : 0-24 Low Risk [place] Fall Interventions : Adequate lighting, Assistive devices within reach, Bed in low position, Call device within reach, Hourly comfort/safety rounds, Personal items within reach, Room free of clutter/spills, Wheels locked, Wires/Cords secured WENDY GARRIDO 06/14/2021 7:27 EST Pain Assessment Pain Assessment : Initial assessment Intensity : 0 WENDY GARRIDO 06/14/2021 7:27 EST Electronically signed by Kristen, [facility] Conversion Building Architectural Designer Cerner at 10/30/2022 8:54 AM CDT documented in this encounter Plan of Treatment Not on file documented as of this encounter Visit Diagnoses Not on filedocumented in this encounter Care Teams Accounting Teacher Relationship Specialty Start Date End Date Odette HERCULES Md, MD Mark [address] [address] PCP - General Gastroenterology 05/30/22 11/13/22 [facility], Provider Not In The System, [place] [address] PCP - General 11/14/22 09/22/23 Yamilka Stern, [place] [address] PCP - General Family Medicine 09/23/23 Odette HERCULES Md, MD Mark [address] [address] Gastroenterology 11/14/22 documented as of this encounter
[2025-07-04 14:59] LABS: Hematocrit 51.5 % (42.0-52.0); Hemoglobin 17.2 g/dL (14.1-18.0); Immature Granulocytes % 0.5 %; Mean Corpuscular HGB Conc 33.4 g/dL (31.8-35.4); Mean Corpuscular Hemoglobin 31.1 pg (27.0-31.2); Mean Corpuscular Volume 93.1 fl (80-94); Nucleated Red Blood Cells % 0 %; Platelet Count 281 K/mm3 (142-424); Red Blood Count 5.53 M/mm3 (4.60-6.20); Red Cell Distribution Width-SD 55.7 fL; White Blood Count 7.7 K/mm3 (4.8-10.8)
[2025-07-04 15:17] LABS: Albumin Level 4.6 g/dl (3.5-5.0); Chloride 102 mmol/L (98-107)
[2025-07-04 15:18] LABS: Potassium 4.6 mmoL/L (3.5-5.1); Sodium 137 mmol/L (136-145)
[2025-07-04 15:20] LABS: Alanine Aminotransferase 31 U/L (12-78); Aspartate Amino Transferase 26 U/L (17-59); Bilirubin,Total 0.8 mg/dl (0.2-1.3); Blood Urea Nitrogen 20 mg/dl (9-20); Creatinine,Serum 1.50 mg/dl (0.66-1.25); Estimated Glomerular Filt Rate 50 ml/min (>60); GFR (African American) 60 ML/MIN (>60)
[2025-07-04 15:21] LABS: Albumin/Globulin Ratio 1.6 (1.1-1.8); Alkaline Phosphatase 58 U/L (38-126); Anion Gap 11.6 mEq/L (5-15); Calcium 10.1 mg/dl (8.4-10.2); Carbon Dioxide 28 mmol/L (22.0-30.0); Globulin 2.9 g/dL (1.3-3.2); Glucose 92 mg/dl (74-100); Iron 135 ug/dL (49-181); Total Protein,Serum 7.5 g/dl (6.3-8.2)
[2025-07-04 15:27] LABS: C-Reactive Protein 2.0 mg/L (0-4)
[2025-07-04 15:30] LABS: Total Iron Binding Capacity 340 ug/dL (261-462)
[2025-07-04 15:56] LABS: Ferritin 105 ng/ml (17.9-464)
== END 2025-07-04 23:59 | disposition home or self-care (01) ==
LOC: LAB 14:46
PROVIDERS: PCP Family Medicine; Visit Provider Internal Medicine Gastroenterology
DX: K50.10 Crohn's disease of large intestine without complications (principal); K74.69 Other cirrhosis of liver; B19.20 Unspecified viral hepatitis C without hepatic coma
CPT/HCPCS: 36415; 80053; 82728; 83540; 83550; 85025; 85651; 86140